=== PATIENT | female | born 1990 | race Caucasian/White ===

== ENCOUNTER 2017-01-23 17:24 | Emergency (ER) | payer OTHER ==
[~2017-01-23] VITALS: Ht 157.5 cm; Wt 60.0 kg
[2017-01-23 17:25] VITALS: Ht 157.5 cm; Wt 60.0 kg
--- NOTE | 2017-01-23 19:05 | ERD ---
ER Documentation Chief Complaint Date/Time DATE: 01/23/17 TIME: 19:04 Chief Complaint VAGINAL BLEEDING, BROWN DISCHARGES TODAY, CRAMPING, 6 WEEKS HPI This 26-year-old female presents the emergency department today complaining of some vaginal bleeding and crampy abdominal pain. States she is approximate 6 weeks . States he had an ultrasound 1 week ago and everything was fine. Denies any fevers or chills, dysuria, nausea or vomiting. She has not taken a medication for the pain. ROS All systems reviewed and are negative except as per history of present illness. Medications Home Meds Active Scripts Acetaminophen* (Tylophen*) 500 Mg Capsule, 1 CAP PO Q6H Y for PAIN AND OR ELEVATED TEMP, #30 CAP Prov:STEVEN CAPONE PA-C 01/23/17 Allergies Allergies: Coded Allergies: No Known Allergies (Verified Allergy, Mild, 01/23/17) PMhx/Soc History of Surgery: No Anesthesia Reaction: No Hx Neurological Disorder: No Hx Respiratory Disorders: No Hx Cardiac Disorders: No Hx Psychiatric Problems: No Hx Miscellaneous Medical Probl: No Hx Alcohol Use: No Hx Substance Use: No Hx Tobacco Use: No Physical Exam Vitals Vital Signs Date Time Temp Pulse Resp B/P Pulse Ox O2 Delivery O2 Flow Rate FiO2 01/23/17 17:25 97.6 82 20 123/75 99 Physical Exam Const: No acute distress Head: Atraumatic Eyes: Normal Conjunctiva ENT: Normal External Ears, Nose and Mouth. Neck: Full range of motion..~ No meningismus. Resp: Clear to auscultation bilaterally Cardio: Regular rate and rhythm, no murmurs Abd: Soft, suprapubic tenderness non distended. Normal bowel sounds no tenderness McBurney Skin: No petechiae or rashes Back: No midline or flank tenderness Ext: No cyanosis, or edema Neur: Awake and alert Psych: Normal Mood and Affect Result Diagram: 01/23/171914 Results 24 hrs Laboratory Tests Test 01/23/17 19:15 01/23/17 19:17 White Blood Count 7.610^3/ul Red Blood Count 4.6610^6/ul Hemoglobin 13.1g/dl Hematocrit 38.6% Mean Corpuscular Volume 82.8fl Mean Corpuscular Hemoglobin 28.1pg Mean Corpuscular Hemoglobin Concent 33.9g/dl Red Cell Distribution Width 12.8% Platelet Count 95821^3/UL Mean Platelet Volume 10.4fl Neutrophils % 65.9% Lymphocytes % 26.2% Monocytes % 4.4% Eosinophils % 2.4% Basophils % 0.7% Nucleated Red Blood Cells % 0.0/100WBC Neutrophils # 5.010^3/ul Lymphocytes # 2.010^3/ul Monocytes # 0.310^3/ul Eosinophils # 0.210^3/ul Basophils # 0.110^3/ul Nucleated Red Blood Cells # 0.010^3/ul Beta HCG, Quantitative 5803.4mIU/ml Urine Color YELLOW Urine Clarity SLIGHTLY CLOUDY Urine pH 6.0 Urine Specific [place] 1.021 Urine Ketones NEGATIVEmg/dL Urine Nitrite NEGATIVEmg/dL Urine Bilirubin NEGATIVEmg/dL Urine Urobilinogen NEGATIVEmg/dL Urine Leukocyte Esterase NEGATIVELeu/ul Urine Microscopic RBC 3/HPF Urine Microscopic WBC 2/HPF Urine Squamous Epithelial Cells FEW/HPF Urine Mucus FEW/HPF Urine Hemoglobin 1+mg/dL Urine Glucose NEGATIVEmg/dL Urine Total Protein NEGATIVEmg/dl DIAGNOSTIC IMAGING REPORT Patient: ANDRE HEBERT : 1990 Age: 26 Sex: F MR #: [id number] DOS: 01/23/17 1858 Ordering MD: STEVEN CAPONE PA-C Location: [facility] BEDS AT THE [facility] Room/Bed: PROCEDURE: US Pelvis. CLINICAL INDICATION: Vaginal Bleed () TECHNIQUE: Multiple sonographic images of the pelvis were obtained utilizing a transabdominal and endovaginal technique. The images were reviewed on a PACS workstation. COMPARISON: None. FINDINGS: The uterus is unremarkable. There is a single intrauterine gestation present. The crown-rump length is 0.5 cm. This corresponds to a mean a age by ultrasound of 6 weeks 0 days with an estimated date of delivery of 09/18/2017. A yolk sac is present. There is normal cardiac activity with a heart rate of 123 beats per minute. The right ovary measures 2.4 x 2.4 x 3.3 cm The left ovary measures 1.8 x 2.1 x 2.8 cm There is normal vascular flow to both ovaries. No adnexal masses or free fluid is identified. IMPRESSION: Single viable intrauterine gestation with a mean a age by ultrasound of 6 weeks a 0 days with an estimated delivery of 09/18/2017. Otherwise, no significant abnormalities are identified. RPTAT:AAJJ Magdiel Galindo Physician Date Time Electronically viewed and signed by Magdiel Galindo Physician on 01/23/2017 20: 19 MC/ CC: STEVEN CAPONE PA-C Procedures/MDM This is a A1 26-year-old female who presents to the emergency department today complaining of vaginal bleeding. Patient states she is approximately 6 weeks . Given this I did obtain a complete OB workup. Laboratory work shows no other white blood cell count. She is not anemic. Platelets are within normal limits per UA is negative for infection. Beta quant hCG 5803.4 Rh status O + Ultrasound shows a single viable intrauterine gestation with a mean age of by ultrasound of 6 weeks and 0 days with an estimated date of delivery of September 18, 2017. Normal cardiac activity with a heart rate of 123 bpm. No adnexal masses or free fluid is identified peer Patient symptoms at this time is consistent with vaginal bleeding in early . Other differentials to consider early normal versus early failed versus placenta previa versus subchorionic hemorrhage. Patient is afebrile and otherwise well-appearing. I have low suspicion for ectopic , tubo ovarian abscess, ovarian torsion. I have explained the results to the patient. I have explained to the patient that they need to follow-up with her MANAGEMENT MANAGER. Explained to the patient that she may continue to have vaginal bleeding. She declined Tylenol here in the emergency department. She was given a prescription for home. At this time the patient is stable for discharge and outpatient management. Patient should follow up with their PCP in the next 1-2 days. They may return to the emergency department sooner for any persistent or worsening of symptoms. Patient understood and agreed with the plan. Departure Diagnosis: Primary Impression: Vaginal bleeding in patient at less than 20 weeks gestation Condition: Fair STEVEN CAPONE PA-C Jan 23, 2017 19:05
[2017-01-23 19:19] LABS: BASOPHIL # 0.1 10^3/ul (0.0-0.1); BASOPHILS % 0.7 % (0.0-2.0); EOSINOPHILS # 0.2 10^3/ul (0.0-0.5); EOSINOPHILS % 2.4 % (0.0-7.0); HEMATOCRIT 38.6 % (37.0-47.0); HEMOGLOBIN 13.1 g/dl (12.0-16.0); LYMPHOCYTES % 26.2 % (15.0-51.0); MEAN CORPUSCULAR HEMOGLOBIN 28.1 pg (29.0-33.0); MEAN CORPUSCULAR HGB CONC 33.9 g/dl (32.0-37.0); MEAN CORPUSCULAR VOLUME 82.8 fl (82.0-101.0); MEAN PLATELET VOLUME 10.4 fl (7.4-10.4); MONOCYTE # 0.3 10^3/ul (0.3-0.9); MONOCYTES % 4.4 % (0.0-11.0); NEUTROPHILS % 65.9 % (39.0-77.0); PLATELET COUNT 286 10^3/UL (140-415); RED BLOOD COUNT 4.66 10^6/ul (4.20-5.40); RED CELL DISTRIBUTION WIDTH 12.8 % (11.5-14.5); WHITE BLOOD COUNT 7.6 10^3/ul (4.8-10.8)
[2017-01-23 19:36] LABS: ADD UMIC YES; UR ASCORBIC ACID 40 mg/dL (NEGATIVE); UR BILIRUBIN (Dip) NEGATIVE (NEGATIVE); UR BLOOD (Dip) 1+ mg/dL (NEGATIVE); UR CLARITY SLIGHTLY CLOUDY (CLEAR); UR COLOR YELLOW (YELLOW); UR GLUCOSE (Dip) NEGATIVE (NEGATIVE); UR KETONES (Dip) NEGATIVE (NEGATIVE); UR LEUKOCYTE ESTERASE (Dip) NEGATIVE Leu/ul (NEGATIVE); UR MUCUS FEW /HPF (NONE SEEN); UR NITRITE (Dip) NEGATIVE (NEGATIVE); UR RBC 3 /HPF (0-5); UR SPECIFIC GRAVITY (Dip) 1.021 (1.003-1.030); UR SQUAMOUS EPITHELIAL CELL FEW /HPF (FEW); UR TOTAL PROTEIN (Dip) NEGATIVE (NEGATIVE); UR UROBILINOGEN (Dip) NEGATIVE (NEGATIVE)
--- NOTE | 2017-01-23 20:20 | RADRPT ---
PROCEDURE: US Pelvis. CLINICAL INDICATION: Vaginal Bleed () TECHNIQUE: Multiple sonographic images of the pelvis were obtained utilizing a transabdominal and endovaginal technique. The images were reviewed on a PACS workstation. COMPARISON: None. FINDINGS: The uterus is unremarkable. There is a single intrauterine gestation present. The crown-rump lengt h is 0.5 cm. This corresponds to a mean a age by ultrasound of 6 weeks 0 days with an estimated dalia e of delivery of 09/18/2017. A yolk sac is present. There is normal cardiac activity with a heart rate of 123 beats per minute. The right ovary measures 2.4 x 2.4 x 3.3 cm The left ovary measures 1.8 x 2.1 x 2.8 cm There is n ormal vascular flow to both ovaries. No adnexal masses or free fluid is identified. IMPRESSION: Single viable intrauterine gestation with a mean a age by ultrasound of 6 weeks a 0 days with an est imated delivery of 09/18/2017. Otherwise, no significant abnormalities are identified. RPTAT:AAJJ Physician Kat Date Time Electronically viewed and signed by Physician Kat on 01/23/2017 20:19 GEOFF/
[2017-01-23] MEDS ORDERED: ACET500C5 PO (20:35)
== END 2017-01-23 20:41 | disposition home or self-care (01) ==
LOC: FTE 17:24
DX: O20.9 Hemorrhage in early pregnancy, unspecified (principal); R10.2 Pelvic and perineal pain; Z3A.01 Less than 8 weeks gestation of pregnancy
CPT/HCPCS: 76801; 76817; 81001; 84702; 85025; 86900; 86901

== ENCOUNTER 2017-01-26 14:30 | Emergency (ER) | payer OTHER ==
[~2017-01-26] VITALS: Ht 157.5 cm; Wt 59.5 kg
[~2017-01-26 14:30] MED LIST: ACET500C5 PO
[2017-01-26 14:32] VITALS: Ht 157.5 cm; Wt 59.5 kg
[2017-01-26 15:49] LABS: BASOPHIL # 0.1 10^3/ul (0.0-0.1); BASOPHILS % 0.6 % (0.0-2.0); EOSINOPHILS # 0.1 10^3/ul (0.0-0.5); EOSINOPHILS % 1.5 % (0.0-7.0); HEMATOCRIT 37.7 % (37.0-47.0); HEMOGLOBIN 12.2 g/dl (12.0-16.0); LYMPHOCYTES # 2.1 10^3/ul (0.8-2.9); LYMPHOCYTES % 23.4 % (15.0-51.0); MEAN CORPUSCULAR HEMOGLOBIN 26.8 pg (29.0-33.0); MEAN CORPUSCULAR HGB CONC 32.4 g/dl (32.0-37.0); MEAN CORPUSCULAR VOLUME 82.7 fl (82.0-101.0); MEAN PLATELET VOLUME 10.3 fl (7.4-10.4); MONOCYTE # 0.5 10^3/ul (0.3-0.9); MONOCYTES % 5.1 % (0.0-11.0); NEUTROPHIL # 6.3 10^3/ul (1.6-7.5); NEUTROPHILS % 69.2 % (39.0-77.0); PLATELET COUNT 266 10^3/UL (140-415); RED BLOOD COUNT 4.56 10^6/ul (4.20-5.40); RED CELL DISTRIBUTION WIDTH 13.2 % (11.5-14.5); WHITE BLOOD COUNT 9.1 10^3/ul (4.8-10.8)
[2017-01-26 15:58] LABS: ADD UMIC YES; UR ASCORBIC ACID NEGATIVE (NEGATIVE); UR BILIRUBIN (Dip) NEGATIVE (NEGATIVE); UR BLOOD (Dip) 3+ mg/dL (NEGATIVE); UR CLARITY SLIGHTLY CLOUDY (CLEAR); UR COLOR YELLOW (YELLOW); UR GLUCOSE (Dip) NEGATIVE (NEGATIVE); UR KETONES (Dip) NEGATIVE (NEGATIVE); UR LEUKOCYTE ESTERASE (Dip) TRACE Leu/ul (NEGATIVE); UR MUCUS FEW /HPF (NONE SEEN); UR NITRITE (Dip) NEGATIVE (NEGATIVE); UR RBC 106 /HPF (0-5); UR SPECIFIC GRAVITY (Dip) 1.024 (1.003-1.030); UR SQUAMOUS EPITHELIAL CELL FEW /HPF (FEW); UR TOTAL PROTEIN (Dip) NEGATIVE (NEGATIVE); UR UROBILINOGEN (Dip) NEGATIVE (NEGATIVE)
--- NOTE | 2017-01-26 17:50 | RADRPT ---
PROCEDURE: US OB. CLINICAL INDICATION: Vaginal bleeding. TECHNIQUE: Transabdominal and transvaginal imaging of the gravid uterus was performed. Images are reviewed on a high-resolution PACS workstation. COMPARISON: 01/23/2017. FINDINGS: Assigned due date is 09/10/2017 Estimated gestational age by assigned due date is 7 weeks 4 days Intrauterine is identified. The crown-rump length equals 0.79 cm. The estimated gestational age equals 6 weeks 3 days by ultrasound criteria. Normal cardiac activity is identified with heart rate of 126 bpm. No subchorionic hemorrhage is identified. The ovaries are unremarkable. IMPRESSION: 1. Single live intrauterine with an estimated gestational age of 6 weeks 3 days by ultras ound criteria and an estimated date of delivery of 09/18/2017. RPTAT: QQ .Remy Montgomery MD, MD Date Time Electronically viewed and signed by .Remy Montgomery MD, on 01/26/2017 17:49 .M/
[2017-01-26] MEDS ORDERED: NITR-58 PO (18:00)
[2017-01-26 18:11] VITALS: BP 105/67; PULSE 80; RESP 20; TEMP 98.4
--- NOTE | 2017-02-01 12:57 | ERD ---
ER Documentation Chief Complaint Date/Time DATE: 02/01/17 TIME: 12:36 Chief Complaint vag bleed x 3 days, 6 weeks HPI 26-year-old female who is A1 with last menstrual period on December 04 presents emergency room with symptoms of vaginal bleeding and pelvic pain for a few days. She was seen here 2 days ago and had an ultrasound done with an intrauterine , single live IUP. Denies any fever, chills, abdominal pain, nausea, vomiting, diarrhea, constipation, vaginal discharge. ROS All systems reviewed and are negative except as per history of present illness. Medications Home Meds Active Scripts Nitrofurantoin Monohyd Macrocr* (Macrobid*) 100 Mg Capsr, 100 MG PO BID for 7 Days, CAP Prov:LUIS A HAMLIN PA-C 01/26/17 Acetaminophen* (Tylophen*) 500 Mg Capsule, 1 CAP PO Q6H Y for PAIN AND OR ELEVATED TEMP, #30 CAP Prov:STEVEN CAPONE PA-C 01/23/17 Allergies Allergies: Coded Allergies: No Known Allergies (Verified Allergy, Mild, 01/23/17) PMhx/Soc History of Surgery: No Anesthesia Reaction: No Hx Neurological Disorder: No Hx Respiratory Disorders: No Hx Cardiac Disorders: No Hx Psychiatric Problems: No Hx Miscellaneous Medical Probl: No Hx Alcohol Use: No Hx Substance Use: No Hx Tobacco Use: No Smoking Status: Never smoker Physical Exam Vitals Temp 98.7 Pulse 83 Resp 16 SBP 121 DBP 74 O2 Sat 99 Physical Exam Const: Well appearing Head: Atraumatic Eyes: Normal Conjunctiva ENT: Normal External Ears, Nose and Mouth. Neck: Full range of motion..~ No meningismus. Resp: Clear to auscultation bilaterally Cardio: Regular rate and rhythm, no murmurs Abd: Soft, non tender, non distended. Normal bowel sounds. Negative McBurney 's Point. Skin: No petechiae or rashes Back: No midline or flank tenderness Ext: No cyanosis, or edema Neur: Awake and alert Psych: Normal Mood and Affect Results 24 hrs Laboratory Tests Test 01/26/17 15:38 White Blood Count 9.110^3/ul Red Blood Count 4.5610^6/ul Hemoglobin 12.2g/dl Hematocrit 37.7% Mean Corpuscular Volume 82.7fl Mean Corpuscular Hemoglobin 26.8pg Mean Corpuscular Hemoglobin Concent 32.4g/dl Red Cell Distribution Width 13.2% Platelet Count 08746^3/UL Mean Platelet Volume 10.3fl Neutrophils % 69.2% Lymphocytes % 23.4% Monocytes % 5.1% Eosinophils % 1.5% Basophils % 0.6% Nucleated Red Blood Cells % 0.0/100WBC Neutrophils # 6.310^3/ul Lymphocytes # 2.110^3/ul Monocytes # 0.510^3/ul Eosinophils # 0.110^3/ul Basophils # 0.110^3/ul Nucleated Red Blood Cells # 0.010^3/ul Urine Color YELLOW Urine Clarity SLIGHTLY CLOUDY Urine pH 6.0 Urine Specific [place] 1.024 Urine Ketones NEGATIVEmg/dL Urine Nitrite NEGATIVEmg/dL Urine Bilirubin NEGATIVEmg/dL Urine Urobilinogen NEGATIVEmg/dL Urine Leukocyte Esterase TRACELeu/ul Urine Microscopic RBC 106/HPF Urine Microscopic WBC 5/HPF Urine Squamous Epithelial Cells FEW/HPF Urine Mucus FEW/HPF Urine Hemoglobin 3+mg/dL Urine Glucose NEGATIVEmg/dL Urine Total Protein NEGATIVEmg/dl Beta HCG, Quantitative 5227.7mIU/ml Procedures/MDM This is a 26 year old, A 1 presents to the ED complaining of vaginal bleeding. Patient is afebrile, nontoxic appearing. Laboratory work shows no other white blood cell count. She is not anemic. UA - trace leukocyte esterase, 3+ hematuria Beta quant hCG 5803.4 decreased to 5227.7 Rh status O + PROCEDURE: US OB. CLINICAL INDICATION: Vaginal bleeding. TECHNIQUE: Transabdominal and transvaginal imaging of the gravid uterus was performed. Images are reviewed on a high-resolution PACS workstation. COMPARISON: 01/23/2017. FINDINGS: Assigned due date is 09/10/2017 Estimated gestational age by assigned due date is 7 weeks 4 days Intrauterine is identified. The crown-rump length equals 0.79 cm. The estimated gestational age equals 6 weeks 3 days by ultrasound criteria. Normal cardiac activity is identified with heart rate of 126 bpm. No subchorionic hemorrhage is identified. The ovaries are unremarkable. IMPRESSION: 1. Single live intrauterine with an estimated gestational age of 6 weeks 3 days by ultrasound criteria and an estimated date of delivery of 2017 Patient symptoms at this time is consistent with vaginal bleeding in early . Other differentials to consider early normal versus early failed versus subchorionic hemorrhage. Patient is afebrile and otherwise well-appearing. I have low suspicion for ectopic , tubo ovarian abscess, ovarian torsion.I have explained the results to the patient. I have explained to the patient that they need to follow-up with her RAND BUTTER. Explained to the patient that she may continue to have vaginal bleeding. At this time the patient is stable for discharge and outpatient management. Patient should follow up with their RAND BUTTER in the next 2 days. They may return to the emergency department sooner for any persistent or worsening of symptoms. Patient understood and agreed with the plan. Departure Diagnosis: Primary Impression: Vaginal bleeding in patient at less than 20 weeks ges... Condition: Stable Patient Instructions: Urinary Tract Infections in Women, Bleeding During Early , Possible Miscarriage (Threatened ) Referrals: LUIS MANUEL OLIVARES (PCP) [facility], [facility] YOU HAVE RECEIVED A MEDICAL SCREENING EXAM AND THE RESULTS INDICATE THAT YOU DO NOT HAVE A CONDITION THAT REQUIRES URGENT TREATMENT IN THE EMERGENCY DEPARTMENT. FURTHER EVALUATION AND TREATMENT OF YOUR CONDITION CAN WAIT UNTIL YOU ARE SEEN IN YOUR DOCTORS OFFICE WITHIN THE NEXT 1-2 DAYS. IT IS YOUR RESPONSIBILITY TO MAKE AN APPOINTMENT FOR FOLOW-UP CARE. IF YOU HAVE A PRIMARY DOCTOR --you should call your primary doctor and schedule an appointment IF YOU DO NOT HAVE A PRIMARY DOCTOR YOU CAN CALL OUR PHYSICIAN REFERRAL HOTLINE AT IF YOU CAN NOT AFFORD TO SEE A PHYSICIAN YOU CAN CHOSE FROM THE FOLLOWING [facility], [facility] [address] [facility]. [facility] [address] [facility]. [facility] [address] [facility]. [facility] [address] [facility] [address] [facility]. [facility]. [address] [facility] YOU HAVE RECEIVED A MEDICAL SCREENING EXAM AND THE RESULTS INDICATE THAT YOU DO NOT HAVE A CONDITION THAT REQUIRES URGENT TREATMENT IN THE EMERGENCY DEPARTMENT. FURTHER EVALUATION AND TREATMENT OF YOUR CONDITION CAN WAIT UNTIL YOU ARE SEEN IN YOUR DOCTORS OFFICE WITHIN THE NEXT 1-2 DAYS. IT IS YOUR RESPONSIBILITY TO MAKE AN APPOINTMENT FOR FOLOW-UP CARE. IF YOU HAVE A PRIMARY DOCTOR --you should call your primary doctor and schedule and appointment IF YOU DO NOT HAVE A PRIMARY DOCTOR YOU CAN CALL OUR PHYSICIAN REFERRAL HOTLINE AT . IF YOU CAN NOT AFFORD TO SEE A PHYSICIAN YOU CAN CHOSE FROM THE FOLLOWING [facility] INSTITUTIONS: [facility] [address] [place] [address] [facility] [address] [place] [address] [facility] [address] [place] [address] [facility] URGENT [facility]/SPECIALTIES [facility] [place] [address] [facility] [address] [place] [address] OFFICE FAX , [address] [place] [address] [address] [facility] [address] [place] [address] [address] [facility] [address] [facility] [address] [address] [place] [address] [address] [address] [place] [address] [address] [facility] [id number] [address], [facility] [address] [address] [address] [facility] [address], [facility] [address] [address] [address] [place] [address] [facility] Hours: 8:00 am - 5:00 pm Additional Instructions: Call your RAND BUTTER TOMORROW for an appointment during the next 2-3 days.See the doctor sooner or return here if your condition worsens before your appointment time. LUIS A HAMLIN PA-C Feb 01, 2017 12:49
== END 2017-01-26 18:14 | disposition home or self-care (01) ==
LOC: FTE 14:30
DX: O20.9 Hemorrhage in early pregnancy, unspecified (principal); R10.2 Pelvic and perineal pain; Z3A.01 Less than 8 weeks gestation of pregnancy
CPT/HCPCS: 36415; 76801; 76817; 81001; 84702; 85025; Z7502

== ENCOUNTER 2017-07-21 09:29 | Emergency (ER) | END 2017-07-21 15:11 | disposition left against medical advice (07) ==

== ENCOUNTER 2017-12-03 19:57 | Emergency (ER) | END 2017-12-03 20:51 | disposition home or self-care (01) ==

== ENCOUNTER 2018-10-14 13:47 | Emergency (ER) | payer OTHER ==
[~2018-10-14] VITALS: Ht 157.5 cm; Wt 58.2 kg
[~2018-10-14 13:47] MED LIST changes: +CEPH-443 PO; +IBUP-1542 PO; +NITR-58 PO
[2018-10-14 14:04] VITALS: Ht 157.5 cm; Wt 58.2 kg
[2018-10-14] MEDS ORDERED: METOCLOPRAMIDE 10 MG INJ IV ONE (15:00)
[2018-10-14] MEDS ORDERED: SOD CHLORIDE 0.9% 1,000 ML IV ONE (15:00)
[2018-10-14] MEDS ORDERED: DOXY1TAB3 PO (16:14)
[2018-10-14] MEDS ORDERED: METO5TAB2 PO (16:14)
--- NOTE | 2018-10-14 16:15 | ERD ---
ER Documentation Chief Complaint Chief Complaint pt 14 weeks and vomiting x 3 days HPI 27-year-old female no significant past medical history presents for vomiting x3 days. She is currently 14 weeks . She states she has vomited multiple times. She was given Zofran by her MERCHANDISE MANAGER without relief. Patient states that she vomits every time she eats denies fevers or chills. Denies abdominal pain. Denies vaginal bleeding. Denies diarrhea. ROS All systems reviewed and are negative except as per history of present illness. Medications Home Meds Active Scripts Doxylamine/Pyridoxine Hcl (DICLEGIS DR 10-10 MG TABLET) 1 Each Tablet.dr, 2 TAB PO DAILY PRN for vomiting, #30 TAB 2 tabs at bedtime and day 1 and day 2 if symptoms persist, take 1 tab in the morning and 2 tabs at night on day 3 if still persist, take one in the morning, one in the afternoon, and 2 tabs at bedtime on day 4 maximum 40mg (4 tabs) per day Prov:SHAHBAZ BOTELLO DO 10/14/18 Metoclopramide Hcl (Reglan) 5 Mg Tab, 5 MG PO Q6H PRN for vomiting, #30 TAB Prov:SHAHBAZ BOTELLO DO 10/14/18 Cephalexin* (Keflex*) 500 Mg Capsule, 500 MG PO QID for 10 Days, CAP Prov:RUPESH CARLOS NP 12/03/17 Ibuprofen* (Motrin*) 600 Mg Tab, 600 MG PO Q6H PRN for PAIN AND OR ELEVATED TEMP, #30 TAB Prov:RUPESH CARLOS NP 12/03/17 Nitrofurantoin Monohyd Macrocr* (Macrobid*) 100 Mg Capsr, 100 MG PO BID for 7 Days, CAP Prov:LUIS A HAMLIN PA-C 01/26/17 Acetaminophen* (Tylophen*) 500 Mg Capsule, 1 CAP PO Q6H PRN for PAIN AND OR ELEVATED TEMP, #30 CAP Prov:STEVEN CAPONE PA-C 01/23/17 Allergies Allergies: Coded Allergies: No Known Allergies (Verified Allergy, Mild, 01/23/17) PMhx/Soc History of Surgery: No Anesthesia Reaction: No Hx Neurological Disorder: No Hx Respiratory Disorders: No Hx Cardiac Disorders: No Hx Psychiatric Problems: No Hx Miscellaneous Medical Probl: No Hx Alcohol Use: No Hx Substance Use: No Hx Tobacco Use: No FmHx Family History: No coronary disease Physical Exam Vitals Vital Signs Date Temp Pulse Resp B/P (MAP) Pulse Ox O2 O2 Flow FiO2 Time Delivery Rate 10/14/18 98.0 76 16 117/63 100 Room Air 16:26 (81) 10/14/18 98.7 72 18 129/75 100 14:04 (93) Physical Exam Const: No acute distress Head: Atraumatic Eyes: Normal Conjunctiva ENT: Normal External Ears, Nose and Mouth. Neck: Full range of motion. No meningismus. Resp: Clear to auscultation bilaterally Cardio: Regular rate and rhythm, no murmurs Abd: Soft, non tender, non distended. Normal bowel sounds, no rebound or guarding Skin: No petechiae or rashes Back: No midline or flank tenderness Ext: No cyanosis, or edema Neur: Awake and alert Psych: Normal Mood and Affect Results 24 hrs Current Medications Medications Dose Sig/Ed Start Time Status Last (Trade) Ordered Route PRN Stop Time Admin Dose Reason Admin Sodium 1,000 ml @ Q1H ONCE 10/14/18 DC 10/14/18 Chloride 1,000 mls/hr IV 15:00 14:47 10/14/18 15:59 5 mg ONCE ONCE 10/14/18 DC 10/14/18 Metoclopramid IV 15:00 14:47 e HCl 10/14/18 15:01 (Reglan) Procedures/MDM Medical Decision Making: Differential diagnosis includes but not limited to hyperemesis gravidarum, appendicitis, cholecystitis, pancreatitis, small bowel obstruction Patient appeared well on physical exam. Abdominal examination benign. There is low suspicion for acute abdomen at this point. ED course: Patient was given IV fluids and Reglan. Symptoms improved with treatment. Patient possibly has hyperemesis gravidarum Prescription(s): Patient given prescription for supportive medication(s) including Reglan and diclegis Patient advised to follow with MERCHANDISE MANAGER Patient advised to follow up with PCP in 1-2 days. Patient advised to return to ED for new or worsening symptoms. Patient stable on discharge from the ED. Disclaimer: Inadvertent spelling and grammatical errors are likely due to EHR/dictation software use and do not reflect on the overall quality of patient care. Also, please note that the electronic time recorded on this note does not necessarily reflect the actual time of the patient encounter. Departure Diagnosis: Primary Impression: Hyperemesis gravidarum Condition: Fair Patient Instructions: Hyperemesis Gravidarum Additional Instructions: Call your primary care doctor TOMORROW for an appointment during the next 1-2 days.See the doctor sooner or return here if your condition worsens before your appointment time. Follow up with turn out worker SHAHBAZ BOTELLO DO Oct 14, 2018 16:14
[2018-10-14 16:26] VITALS: BP 117/63; PULSE 76; RESP 16
== END 2018-10-14 16:27 | disposition home or self-care (01) ==
LOC: FTE 13:47
DX: O21.0 Mild hyperemesis gravidarum (principal); Z3A.14 14 weeks gestation of pregnancy
CPT/HCPCS: 96361; 96374; J2765; Z7502

== ENCOUNTER 2018-12-15 19:25 | Outpatient (CLI) | payer OTHER ==
[~2018-12-15] VITALS: Ht 157.5 cm; Wt 60.0 kg
[~2018-12-15 19:25] MED LIST changes: +DOXY1TAB3 PO; +METO5TAB2 PO
[2018-12-15 20:06] VITALS: Ht 157.5 cm; Wt 60.0 kg
[2018-12-15] MEDS ORDERED: PREN1TAB91 PO (20:10)
--- NOTE | 2018-12-15 21:48 | PN ---
Triage Information Date/Time Reason for visit: Abd/pelvic pain Weeks of Gestation Patient is a 28-year-old 6 para 2 at 22 weeks and 3 days of gestation with estimated date of delivery April 17, 2019 She presents with chief complaint of abdominal pain Patient reports history of UTI 3 weeks ago which she was treated with antibiotics Patient reports positive movement, denies vaginal bleeding and leaking fluid, denies uterine contractions /Para 6 para 2 Diabetes: none Hypertention: none Objective Heart Rate: 140's Heart Rate Comments heart rate appropriate for gestational age Contractions: None Results/Medications Results 24 hrs Laboratory Tests Test 12/15/18 19:20 Urine Color YELLOW Urine Clarity CLOUDY A Urine pH 7.0 Urine Specific [place] 1.023 Urine Ketones NEGATIVE Urine Nitrite NEGATIVE Urine Bilirubin NEGATIVE Urine Urobilinogen NEGATIVE Urine Leukocyte Esterase 2+ H Urine Microscopic RBC 2 Urine Microscopic WBC 10 H Urine Squamous Epithelial Cells FEW Urine Bacteria FEW A Urine Hemoglobin 1+ H Urine Glucose NEGATIVE Urine Total Protein NEGATIVE Imaging Results PROCEDURE: US evaluation of amniotic fluid volume. CLINICAL INDICATION: labor at 22 weeks gestational age. TECHNIQUE: Multiple sonographic images of the gravid uterus were obtained utilizing chaparro-scale imaging. Sagittal and transverse images were obtained. Transvaginal sonography of the cervix was also performed. The images were reviewed on a PACS workstation. KWASI was measured. COMPARISON: No prior studies are available for comparison. FINDINGS: There is a single live intrauterine . heart rate is 163 beats per minute. Position is cephalic. Placenta is anterior grade 1 with no abruption or previa. Maximum vertical pocket of amniotic fluid is 6.0 cm. Cervical length is 3.9 cm. IMPRESSION: 1. Normal amniotic fluid volume with maximum vertical pocket measuring 6.0 cm. 2. Cervical length is 3.9 cm. RPTAT: QQ .Madhu Carrasco MD, Date Time Electronically viewed and signed by .Madhu Carrasco MD, on 12/15/2018 20:54 .R/ CC: KEKE MCNEAL MD [phone] Disposition: Discharge Assessment/Plan Patient encouraged to increase p.o. intake Urine analysis suggestive of UTI- prescription for Macrobid was given Urine culture was sent Patient instructed to follow-up with [facility] clinic in 1 to 2 days KEKE MCNEAL MD Dec 15, 2018 21:48
--- NOTE | 2018-12-15 22:13 | TRIAGE ---
OB Triage Datetime Report Generated by CPN: 12/15/2018 22:13 Datetime: 12/15/2018 21:44 Stage of : OB Triage Labor Evaluation Frequency: 0 Monitor Mode: External Pattern: Normal: <= 5 Contractions in 10 Minutes Resting Tone Neches: Relaxed Datetime: 12/15/2018 21:10 Vaginal Exam Membrane Status: Intact Datetime: 12/15/2018 21:00 Stage of : OB Triage Labor Evaluation Frequency: 0 Monitor Mode: External Pattern: Normal: <= 5 Contractions in 10 Minutes Resting Tone Neches: Relaxed Datetime: 12/15/2018 20:00 Stage of : OB Triage Labor Evaluation Frequency: X1/30 MIN Monitor Mode: External Duration (sec)2399: 30 Quality: Mild Pattern: Normal: <= 5 Contractions in 10 Minutes Resting Tone Neches: Relaxed Datetime: 12/15/2018 19:41 EGA: 22.3 Datetime: 12/15/2018 19:36 Stage of : OB Triage Heart Rate Monitor Mode: Doppler Datetime: 12/15/2018 19:33 Assessment Type: Triage Maternal Assessment Level of Consciousness: Keenly Alert, Responsive DTR's/Clonus: DTRs 2+; No Clonus Headache: Denies Blurred Vision: No Respiratory Effort: Unlabored; Regular Rhythm; Equal Expansion Breath Sounds, Left: Clear and Equal Breath Sounds, Right: Clear and Equal Nausea/Vomiting: Denies RUQ Epigastric Pain: Denies Lower Extremities Edema: None Upper Extremities Edema: None Facial Edema: None Fall Risk Assessment History of Falling: (0) No Secondary Diagnosis: (0) No Ambulatory Aid: (0) Bedrest/Nurse Assist IV Therapy: (0) No Gait: (0) Normal/Bedrest/Immobile Mental Status: (0) Oriented to Own Ability Fall Score: 0 Fall Risk Score Definition: No Risk: No action required Datetime: 12/15/2018 19:32 Time of Arrival: 12/15/2018 19:12 EGA: 22.3 Arrived By: Wheelchair Arrived From: Home Chief Complaint: CRAMPS SINCE 12/14/18 Movement: Present Contractions: Irregular Contractions: Q 15-20 MIN Rupture of Membranes: Denies Vaginal Discharge: Denies Recent Sexual Intercouse: Denies Time Provider Notified: 12/15/2018 20:00 Provider Notified: ELIZABET Initial Plan: DOPPLER, EFM, UA, ASSESSMENT, CALL MD FOR ORDERS Datetime: 12/15/2018 19:30 Stage of : OB Triage Assessment Type: Triage Temperature Route: Oral Pain Assessment Pain Scale: 6 Pain Presence: Intermittent Pain Type: Cramping Pain Location: Abdomen; Back Pain Goal: 3 Pain Relief Measures: Comfort Measures
== END 2018-12-15 21:50 | disposition home or self-care (01) ==
LOC: OBT 19:25 → L-D 19:25 → OBT 21:50
PROVIDERS: ATTEND Obstetrics & Gynecology
DX: O26.892 Other specified pregnancy related conditions, second trimester (principal); Z3A.22 22 weeks gestation of pregnancy; R10.2 Pelvic and perineal pain
CPT/HCPCS: 76815; 76817; 81001; 87086; Z7500; G0463